=== PATIENT | male | born 1980 | race Caucasian/White ===

== ENCOUNTER 2025-01-03 12:37 | Emergency (ER) | payer OTHER, SELFPAY ==
[2025-01-03 12:38] VITALS: BP 145/105
[2025-01-03 13:18] VITALS: BP 160/100; BMI 32.8
[2025-01-03 13:25] LABS: % Basophils 0.7 % (0-2); % Eosinophils 1.5 % (0-6); % Immature Granulocytes 0.5 % (0-0.5); % Lymphocytes 20.3 % (20.5-51.1); % Monocytes 7.3 % (1.7-9.3); % Neutrophils 69.7 % (42.2-75.2); Absolute Basophils 0.1 10^3/uL (0-0.2); Absolute Eosinophils 0.1 10^3/uL (0-0.7); Absolute Lymphocytes 1.5 10^3/uL (1.2-3.4); Absolute Monocytes 0.6 10^3/uL (0.1-0.6); Absolute Neutrophils 5.2 10^3/uL (1.4-6.5); Hematocrit 48.5 % (39.0-52.0); Hemoglobin 17.3 g/dL (13.0-18.0); Mean Corp Hgb Conc. 35.7 g/dL (33.0-37.0); Mean Corpuscular Hgb 30.1 pg (27.0-31.0); Mean Corpuscular Volume 84.5 fL (80.0-94.0); Mean Platelet Volume 8.8 fL (7.4-10.4); Nucleated Red Blood Cells % 0 % (-); Platelet Count 256 10^3/uL (130-400); Red Blood Cell Count 5.74 10^6/uL (4.70-6.10); White Blood Cell Count 7.5 10^3/uL (4.8-10.8)
[2025-01-03 13:35] LABS: ALT (SGPT) 56 U/L (0-50); AST (SGOT) 35 U/L (17-59); Albumin 5.4 g/dl (3.5-5.0); Alkaline Phosphatase 91 U/L (38-126); Blood Urea Nitrogen 15 mg/dl (9-20); Carbon Dioxide 28 mmol/L (22-30); Chloride 101 mmol/L (98-107); Estimated Creatinine Clearance 125 ml/min; Glucose 123 mg/dl (70-99); Potassium 4.4 mmol/L (3.5-5.1); Sodium 140 mmol/L (135-145); Total Bilirubin 0.9 mg/dl (0.2-1.3); Total Protein 8.4 g/dl (6.3-8.2); eGFR > 60.00
[2025-01-03 13:54] VITALS: BP 134/90
[2025-01-03 14:00] VITALS: BP 135/89
--- NOTE | 2025-01-03 15:25 | ED.GENMED ---
History of Present Illness
General
Chief Complaint: Blood Pressure Problem
Time Seen by Provider: 01/03/25 13:02
History of Present Illness
History of Present Illness:
44-year-old male presents the emergency department for evaluation of a left-sided headache associated with acute onset of dizziness while at [employer] today. States as though it felt as though he was walking to the right. Denies any speech problems
vision changes or extremity paresthesias. No chest pain or shortness of breath. Feels improved on arrival. He does note a chronic history of left-sided headaches and has had outpatient MRIs for this in the past
Past History
Past History
ED Past Medical History: Other (chronic low back pain)
Social History
Tobacco: Non-smoker
Personal:
Living: with family
Employment: Employed
Review of Systems
Review of Systems
Allergies reviewed?: Yes
All Other Systems: ROS reviewed and negative except as documented in HPI and ROS
Phy Exam
Physical Exam
Physical Exam:
GEN: Well appearing, NAD, WDWN
HEENT: Oral mucosa moist, no scleral icterus, no nasal congestion
Cardiac: Regular rate and rhythm, no murmurs
Lung: No respiratory distress, no tachypnea
MSK: No gross deformity or injuries
Skin: Good color, no pallor or jaundice, no rashes
Neuro: AO x3; CN II-XII grossly intact. BUE strength 5/5 in all murray, sensation intact and symmetric. BLE strength 5/5 in all murray, sensation intact and symmetric
Psych: Calm, cooperative
Course
Orders/Labs/Results
Orders:
Orders
01/03/25 12:42
ECG [Electrocardiogram (*1)] Urgent
Reason for Study: Vertigo / Dizzy
EKG- Treatment ONCE
01/03/25 13:16
CT Head W/o Iv Contrast Urgent
Comment:
Reason For Exam: dizziness, gait abnormality
01/03/25 13:17
Complete Blood Count/With Diff Urgent
Comprehensive Metabolic Panel Urgent
Abnormal Lab Results
01/03/25
13:17
Lymphocytes % 20.3 L %
(20.5-51.1)
Glucose 123 H mg/dl
(70-99)
ALT 56 H U/L
(0-50)
Total Protein 8.4 H g/dl
(6.3-8.2)
Albumin 5.4 H g/dl
(3.5-5.0)
01/03/25 13:17
01/03/25 13:17
Vital Signs
Initial and Last Documented VS:
Initial Vital Signs
Temp Pulse Resp BP Pulse Ox
97.5 F 92 20 145/105 99
01/03/25 12:38 01/03/25 12:38 01/03/25 12:38 01/03/25 12:38 01/03/25 12:38
Last Documented Vital Signs
Temp Pulse Resp BP Pulse Ox
97.5 F 71 20 135/89 98
01/03/25 12:38 01/03/25 14:07 01/03/25 12:38 01/03/25 14:00 01/03/25 14:00
MDM/Problems Addressed
MDM/Problems Addressed:
Patient is neurologically intact and CT of the head is normal. Blood pressure gradually downtrending in the ED. This may have been an acute vertigo episode versus atypical migraine presentation. Suitable for discharge home
*Critical Care Note
Total Time (30-74mins, 75-104mins- exclusive of procedures): Not Applicable
ED Attending Note
-
Portions of this chart may have been created with voice recognition software.� Occasional wrong word or��sound alike� substitutions may have occurred due to the inherent limitations of voice recognition software.
Discharge Plan
Departure
Patient Disposition: Home (Routine Discharge)
Date of Disposition: 01/03/25
Time of Disposition: 15:26
Patient with high blood pressure during this ER visit?: No
Discharge Problem:
Dizziness
Instructions: Dizziness
Prescriptions:
No Action
hydrocodone-acetaminophen 1 TABLET tablet
1 tab PO Q4HPRN PRN (Reason: pain) Qty: 15 0RF
diazepam 5 MG tablet
5 mg PO TIDPRN PRN (Reason: MUSCLE SPASM/TIGHTNESS) Qty: 20 0RF
cyclobenzaprine 10 MG tablet
10 mg PO TIDPRN PRN (Reason: back pain/spasm) Qty: 30 0RF
ibuprofen 800 MG tablet
800 mg PO TIDPRN PRN (Reason: pain) Qty: 30 0RF
methylprednisolone [Medrol (Shadi)] 4 MG tablets,dose pack
4 tab PO . DIRECT Qty: 1 0RF
prednisone 20 MG tablet
40 mg PO DAILY Qty: 8 0RF
tramadol [Ultram] 50 MG tablet
50 mg PO Q6HPRN PRN (Reason: back pain) Qty: 20 0RF
Referrals:
Yusuf Chavez CRNP [Family Provider] -
Interventions
Interventions:
*Risk Screen - Suicide Last Done: 01/03/25 12:38
*General Assessment Last Done: 01/03/25 12:38
*Neglect/Abuse Screening Last Done: 01/03/25 13:00
ED- Cardiac Assessment Last Done: 01/03/25 13:00
ED- Neurological Assessment Last Done: 01/03/25 13:00
ED- Pulmonary Assessment Last Done: 01/03/25 13:00
Discharge Date and Time
Print Language: SPANISH
== END 2025-01-03 15:50 | disposition home or self-care (01) ==
LOC: EMR 12:37
PROVIDERS: Physician Assistant; EMERGENCY PHYSICIAN Emergency Medicine; FAMILY PHYSICIAN Nurse Practitioner Family
DX: R42 Dizziness and giddiness (principal); R51.9 Headache, unspecified; M54.50 Low back pain, unspecified; G89.29 Other chronic pain
CPT/HCPCS: 99284; 70450; 80053; 85025; 93005